=== PATIENT | female | born 2000 | race African-American/Black ===

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

== ENCOUNTER 2020-07-10 17:52 | Observation (INO) | payer OTHER ==
[~2020-07-10] VITALS: Ht 170.2 cm; Wt 89.8 kg
[2020-07-10] MEDS: LACTATED RINGERS 1,000 ML IV SCH ×2 (18:55→22:15)
[2020-07-10] MEDS ORDERED: TERBUTALINE SULFATE 1MG/ML VIAL SUBCUT NR (22:00)
== END 2020-07-11 01:15 | disposition home or self-care (01) ==
LOC: 8 EST LDRP 17:52
PROVIDERS: ADMIT Obstetrics & Gynecology; ATTEND Obstetrics & Gynecology
DX: O9A.213 Injury, poisoning and certain other consequences of external causes complicating pregnancy, third trimester (principal); O26.893 Other specified pregnancy related conditions, third trimester; O99.891 Other specified diseases and conditions complicating pregnancy; M54.5 Low back pain; R10.30 Lower abdominal pain, unspecified; Z3A.36 36 weeks gestation of pregnancy; V49.60XA Unspecified car occupant injured in collision with unspecified motor vehicles in traffic accident, initial encounter; Y93.89 Activity, other specified; Y92.410 Unspecified street and highway as the place of occurrence of the external cause
CPT/HCPCS: 59025; 76805; 76818; 96360; 96361; 96372; G0378; J3105; 59412; 99281

== ENCOUNTER 2020-07-20 16:19 | Observation (INO) | payer OTHER ==
[~2020-07-20] VITALS: Ht 165.1 cm; Wt 82.6 kg
== END 2020-07-20 17:30 | disposition home or self-care (01) ==
LOC: 8 EST LDRP 16:19
PROVIDERS: ADMIT Specialist; ATTEND Specialist
DX: O42.92 Full-term premature rupture of membranes, unspecified as to length of time between rupture and onset of labor (principal); Z3A.38 38 weeks gestation of pregnancy
CPT/HCPCS: 59025; G0378; 99281